=== PATIENT | female | born 1985 | race Caucasian/White ===

== ENCOUNTER → 2018-02-08 | Outpatient (CLI) | payer OTHER ==
[~2018-02-08] MED LIST: Vitafol-Ob+Dha1 EACH PO
[2018-02-08 17:52] LABS: Specimen Source URINE
[2018-02-09 08:53] LABS: Source Urine
== END ==
LOC: LAB 14:20
PROVIDERS: Registered Nurse Community Health
DX: Z34.01 Encounter for supervision of normal first pregnancy, first trimester (principal)
CPT/HCPCS: 87491; 87591

== ENCOUNTER 2018-08-16 21:13 | Inpatient (IN) | payer OTHER ==
[~2018-08-16] VITALS: Ht 170.2 cm; Wt 87.2 kg
[2018-08-16] MEDS ORDERED: Vitafol-Ob+Dha1 EACH PO (21:48)
[2018-08-16 21:52] LABS: BASOPHILS ABSOLUTE AUTO 0.02 K/mm3 (0.00-0.23); BASOPHILS PERCENT AUTO 0 % (0-2); EOSINOPHILS ABSOLUTE AUTO 0.08 K/mm3 (0.00-0.68); EOSINOPHILS PERCENT AUTO 1 % (0-6); Hematocrit 37.9 % (33.0-51.0); Hemoglobin 12.5 g/dL (11.5-16.0); IMMATURE GRAN ABSOLUTE AUTO 0.06 K/mm3 (0.00-0.10); IMMATURE GRAN PERCENT AUTO 1 % (0-1); LYMPHOCYTES ABSOLUTE AUTO 2.14 K/mm3 (0.84-5.20); LYMPHOCYTES PERCENT AUTO 19 % (21-46); MONOCYTES PERCENT AUTO 9 % (4-13); Mean Corpuscular HGB 30.5 pg (26.0-34.0); Mean Corpuscular Volume 92 fL (80-100); Mean Platelet Volume 10.7 fL (9.1-12.4); NEUTROPHILS ABSOLUTE AUTO 8.24 K/mm3 (1.96-9.15); NEUTROPHILS PERCENT AUTO 71 % (41-73); Platelet Count 223 K/mm3 (150-400); RDW Coefficient Variation 12.8 % (11.7-14.2); RDW Standard Deviation 43.7 fL (35.1-46.3); White Blood Cell Count 11.54 K/mm3 (4.00-11.30)
[2018-08-18 05:52] LABS: BASOPHILS ABSOLUTE AUTO 0.03 K/mm3 (0.00-0.23); BASOPHILS PERCENT AUTO 0 % (0-2); EOSINOPHILS PERCENT AUTO 1 % (0-6); Hematocrit 35.3 % (33.0-51.0); Hemoglobin 11.9 g/dL (11.5-16.0); IMMATURE GRAN ABSOLUTE AUTO 0.09 K/mm3 (0.00-0.10); IMMATURE GRAN PERCENT AUTO 1 % (0-1); LYMPHOCYTES ABSOLUTE AUTO 2.26 K/mm3 (0.84-5.20); LYMPHOCYTES PERCENT AUTO 16 % (21-46); MONOCYTES ABSOLUTE AUTO 1.02 K/mm3 (0.16-1.47); MONOCYTES PERCENT AUTO 7 % (4-13); Mean Corpuscular HGB 31.2 pg (26.0-34.0); Mean Corpuscular HGB Conc 33.7 g/dL (31.5-36.5); Mean Corpuscular Volume 92 fL (80-100); Mean Platelet Volume 10.8 fL (9.1-12.4); NEUTROPHILS ABSOLUTE AUTO 10.28 K/mm3 (1.96-9.15); NEUTROPHILS PERCENT AUTO 75 % (41-73); Platelet Count 197 K/mm3 (150-400); RDW Standard Deviation 43.8 fL (35.1-46.3); Red Blood Cell Count 3.82 M/mm3 (3.80-5.20); White Blood Cell Count 13.78 K/mm3 (4.00-11.30)
== END 2018-08-18 13:20 | disposition home or self-care (01) | DRG 807 ==
LOC: BC 21:13 → OBS 21:13 → BC 21:34
PROVIDERS: Registered Nurse Community Health
PROC: 10E0XZZ Delivery of Products of Conception, External Approach (ICD-10-PCS; principal; 2018-08-17)
PROC: 0HQ9XZZ Repair Perineum Skin, External Approach (ICD-10-PCS; 2018-08-17)
DX: O99.824 Streptococcus B carrier state complicating childbirth (principal); Z37.0 Single live birth; O70.0 First degree perineal laceration during delivery; Z3A.39 39 weeks gestation of pregnancy
CPT/HCPCS: 36415; 85025; 90686; 99213; J0290; J1885; J2210; J2405; J2590; J7120

== ENCOUNTER → 2021-02-21 | Outpatient (CLI) | payer OTHER ==
[2021-02-24 03:37] LABS: CHLAMYDIA TRACHOMATIS, NAA Negative (Negative)
== END ==
LOC: LAB SHORT 18:02 → LAB 18:02
PROVIDERS: Registered Nurse Community Health
DX: Z33.1 Pregnant state, incidental (principal)
CPT/HCPCS: 87491; 87591

== ENCOUNTER → 2021-07-02 | Outpatient (CLI) | payer OTHER ==
[2021-07-02 16:50] LABS: Hemoglobin 12.7 g/dL (11.5-16.0)
== END ==
LOC: LAB SHORT 15:26 → LAB 15:26
PROVIDERS: Registered Nurse Community Health
DX: Z34.91 Encounter for supervision of normal pregnancy, unspecified, first trimester (principal)
CPT/HCPCS: 82950; 85014; 85018

== ENCOUNTER → 2021-08-28 | Outpatient (CLI) | payer OTHER | LOC: LAB SHORT 12:50 → LAB 12:50 | DX: Z3A.36 36 weeks gestation of pregnancy (principal) | CPT/HCPCS: 87081; 87150 ==

== ENCOUNTER 2021-09-19 04:40 | Inpatient (IN) | payer OTHER ==
[~2021-09-19] VITALS: Ht 170.2 cm; Wt 92.0 kg
[2021-09-19 09:12] LABS: SARS-Cov-2 (COVID-19) PCR, MMC NEGATIVE (NEGATIVE)
[2021-09-19 09:14] LABS: BASOPHILS ABSOLUTE AUTO 0.02 K/mm3 (0.00-0.23); BASOPHILS PERCENT AUTO 0 % (0-2); EOSINOPHILS ABSOLUTE AUTO 0.11 K/mm3 (0.00-0.68); EOSINOPHILS PERCENT AUTO 1 % (0-6); Hematocrit 37.3 % (33.0-51.0); Hemoglobin 12.8 g/dL (11.5-16.0); IMMATURE GRAN ABSOLUTE AUTO 0.06 K/mm3 (0.00-0.10); IMMATURE GRAN PERCENT AUTO 1 % (0-1); LYMPHOCYTES ABSOLUTE AUTO 2.59 K/mm3 (0.84-5.20); LYMPHOCYTES PERCENT AUTO 26 % (21-46); MONOCYTES PERCENT AUTO 6 % (4-13); Mean Corpuscular HGB 29.7 pg (26.0-34.0); Mean Corpuscular HGB Conc 34.3 g/dL (31.5-36.5); Mean Corpuscular Volume 87 fL (80-100); Mean Platelet Volume 10.7 fL (9.1-12.4); NEUTROPHILS ABSOLUTE AUTO 6.75 K/mm3 (1.96-9.15); NEUTROPHILS PERCENT AUTO 67 % (41-73); Platelet Count 284 K/mm3 (150-400); RDW Coefficient Variation 12.6 % (11.7-14.2); RDW Standard Deviation 40.2 fL (35.1-46.3); Red Blood Cell Count 4.31 M/mm3 (3.80-5.20); White Blood Cell Count 10.13 K/mm3 (4.00-11.30)
--- NOTE | 2021-09-19 17:10 | NUR ---
PT S/L UP TO SHOWER, PT UNSURE IF SHE VOIDED, ICE TO PERINIUM PT TOLERATED WELL
[2021-09-20 07:06] LABS: BASOPHILS ABSOLUTE AUTO 0.03 K/mm3 (0.00-0.23); BASOPHILS PERCENT AUTO 0 % (0-2); EOSINOPHILS ABSOLUTE AUTO 0.07 K/mm3 (0.00-0.68); EOSINOPHILS PERCENT AUTO 1 % (0-6); Hematocrit 34.1 % (33.0-51.0); Hemoglobin 11.6 g/dL (11.5-16.0); IMMATURE GRAN ABSOLUTE AUTO 0.08 K/mm3 (0.00-0.10); IMMATURE GRAN PERCENT AUTO 1 % (0-1); LYMPHOCYTES ABSOLUTE AUTO 2.06 K/mm3 (0.84-5.20); LYMPHOCYTES PERCENT AUTO 15 % (21-46); MONOCYTES ABSOLUTE AUTO 0.86 K/mm3 (0.16-1.47); MONOCYTES PERCENT AUTO 6 % (4-13); Mean Corpuscular HGB 29.5 pg (26.0-34.0); Mean Corpuscular Volume 87 fL (80-100); Mean Platelet Volume 10.5 fL (9.1-12.4); NEUTROPHILS ABSOLUTE AUTO 10.74 K/mm3 (1.96-9.15); NEUTROPHILS PERCENT AUTO 78 % (41-73); Platelet Count 237 K/mm3 (150-400); RDW Coefficient Variation 12.9 % (11.7-14.2); RDW Standard Deviation 40.7 fL (35.1-46.3); Red Blood Cell Count 3.93 M/mm3 (3.80-5.20); White Blood Cell Count 13.84 K/mm3 (4.00-11.30)
--- NOTE | 2021-09-20 16:33 | NUR ---
BANDS MATCHED WITH NB, D/C INSTRUCTIONS REVIEWED AND SIGNED, PT RETURNING Thursday09/23/21 FOR FOLLOW UP APPOINTMENT.
== END 2021-09-20 16:45 | disposition home or self-care (01) | DRG 807 ==
LOC: BC 04:40
PROVIDERS: ADMIT Family Medicine
PROC: 10E0XZZ Delivery of Products of Conception, External Approach (ICD-10-PCS; principal; 2021-09-19)
PROC: 0KQM0ZZ Repair Perineum Muscle, Open Approach (ICD-10-PCS; 2021-09-19)
PROC: 3E02340 Introduction of Influenza Vaccine into Muscle, Percutaneous Approach (ICD-10-PCS; 2021-09-19)
DX: O99.824 Streptococcus B carrier state complicating childbirth (principal); Z37.0 Single live birth; O70.1 Second degree perineal laceration during delivery; Z23 Encounter for immunization; Z20.822 Contact with and (suspected) exposure to COVID-19; Z3A.39 39 weeks gestation of pregnancy; Z87.891 Personal history of nicotine dependence; Z67.10 Type A blood, Rh positive
CPT/HCPCS: 36415; 85025; 86850; 86900; 86901; 90686; A9270; J0290; J1885; J2210; J2590; J7120; U0004

== ENCOUNTER 2022-01-20 05:31 | Emergency (ER) | payer OTHER ==
[~2022-01-20] VITALS: Ht 170.2 cm; Wt 83.9 kg
[2022-01-20] MEDS ORDERED: FLUTICASONE PRO16 GM (05:44)
[2022-01-20 06:11] LABS: Source, Urine Clean Catch
[2022-01-20 06:14] LABS: Bilirubin, Urine Neg (Neg); Blood, Urine 4+ (Neg); Glucose Qualitative, Urine Neg (Neg); Ketones, Urine 1+ (Neg); Leukocyte Esterase, Urine 1+ (Neg); Nitrite, Urine Neg (Neg); Protein, Urine 1+ (Neg); Specific Gravity, Urine 1.015 (1.003-1.022); Urobilinogen, Urine NORM (Normal)
[2022-01-20 06:27] LABS: Appearance, Urine Hazy (Clear); Bacteria Few /hpf; Color, Urine Yellow (P-Yellow); Squamous Epithelial Cells Few /hpf (Few)
[2022-01-20] MEDS ORDERED: ONDA4ODT MM (06:45)
[2022-01-20] MEDS ORDERED: CEPH500 PO (06:48)
== END 2022-01-20 06:59 | disposition home or self-care (01) ==
LOC: ER 05:31
PROVIDERS: Student in an Organized Health Care Education/Training Program
DX: N39.0 Urinary tract infection, site not specified (principal); N20.1 Calculus of ureter
CPT/HCPCS: 81001; 87086; A9270; J1885

== ENCOUNTER → 2025-02-01 | Outpatient (CLI) | payer OTHER ==
[~2025-02-01] MED LIST changes: +CEPH500 PO; +FLUTICASONE PRO16 GM; +ONDA4ODT MM
[2025-02-01 14:31] LABS: Source, Urine Clean Catch
[2025-02-01 15:54] LABS: BASOPHILS ABSOLUTE AUTO 0.02 K/mm3 (0.00-0.23); BASOPHILS PERCENT AUTO 0 % (0-2); EOSINOPHILS ABSOLUTE AUTO 0.04 K/mm3 (0.00-0.68); EOSINOPHILS PERCENT AUTO 0 % (0-6); Hematocrit 38.1 % (33.0-51.0); Hemoglobin 12.8 g/dL (11.5-16.0); IMMATURE GRAN ABSOLUTE AUTO 0.03 K/mm3 (0.00-0.10); IMMATURE GRAN PERCENT AUTO 0 % (0-1); LYMPHOCYTES ABSOLUTE AUTO 1.99 K/mm3 (0.84-5.20); LYMPHOCYTES PERCENT AUTO 22 % (21-46); MONOCYTES ABSOLUTE AUTO 0.64 K/mm3 (0.16-1.47); MONOCYTES PERCENT AUTO 7 % (4-13); Mean Corpuscular HGB 28.9 pg (26.0-34.0); Mean Corpuscular HGB Conc 33.6 g/dL (31.5-36.5); Mean Corpuscular Volume 86 fL (80-100); Mean Platelet Volume 10.5 fL (9.1-12.4); NEUTROPHILS ABSOLUTE AUTO 6.28 K/mm3 (1.96-9.15); NEUTROPHILS PERCENT AUTO 70 % (41-73); Platelet Count 326 K/mm3 (150-400); RDW Coefficient Variation 12.8 % (11.7-14.2); RDW Standard Deviation 40.1 fL (35.1-46.3); Red Blood Cell Count 4.43 M/mm3 (3.80-5.20)
[2025-02-01 16:18] LABS: Appearance, Urine Hazy (Clear); Bilirubin, Urine Neg (Neg); Blood, Urine Neg (Neg); Color, Urine Yellow (P-Yellow); Glucose Qualitative, Urine Neg (Neg); Ketones, Urine Neg (Neg); Leukocyte Esterase, Urine Neg (Neg); Nitrite, Urine Neg (Neg); Protein, Urine Neg (Neg); Specific Gravity, Urine 1.015 (1.003-1.022); Urobilinogen, Urine NORM (Normal)
[2025-02-01 16:49] LABS: Amorphous Heavy (0-Heavy); Bacteria Few /hpf; Red Blood Cells, Urine 0-2 /hpf (0-2); Squamous Epithelial Cells Rare /hpf (Few); White Blood Cells, Urine 0-2 /hpf (0-5)
[2025-02-02 18:07] LABS: HEPATITIS C AB CIA INTERP Negative (Negative); HEPATITIS C ANTIBODY CIA INDEX 0.16 IV
[2025-02-02 18:47] LABS: HIV 1,2 COMBO ANTIGEN/ANTIBODY Negative (Negative)
[2025-02-03 17:53] LABS: HEPATITIS B SURFACE ANTIGEN Negative (Negative)
== END ==
LOC: LAB 12:00 → LAB SHORT 12:00
PROVIDERS: Registered Nurse Community Health
DX: Z34.91 Encounter for supervision of normal pregnancy, unspecified, first trimester (principal)
CPT/HCPCS: 81001; 82728; 83540; 83550; 84443; 86803; 87086; 87340; 87389

== ENCOUNTER → 2025-02-16 | Outpatient (CLI) | payer OTHER ==
[2025-02-16 18:19] LABS: Chlamydia Trachomatis Urine NOT DETECTED (NOT DETECT); Neisseria Gonorrhoea Urine NOT DETECTED (NOT DETECT)
== END ==
LOC: LAB SHORT 14:13 → LAB 14:13
PROVIDERS: Registered Nurse Community Health
DX: Z34.81 Encounter for supervision of other normal pregnancy, first trimester (principal)
CPT/HCPCS: 87491; 87591

== ENCOUNTER 2025-08-28 05:53 | Inpatient (IN) | payer OTHER ==
[2025-08-28] VITALS (12 sets, daily range): BP systolic 120–138; BP diastolic 60–85
[~2025-08-28] VITALS: Ht 170.2 cm; Wt 93.1 kg
[~2025-08-28 05:53] MED LIST changes: -FLUTICASONE PRO16 GM; +Flonase 0.05% N16 GM
[2025-08-28] MEDS ORDERED: OXYTOCIN/RINGER'S LACTATE 500 ML IV PRN (06:45)
[2025-08-28] MEDS ORDERED: Ondansetron HCl 2 MG / ML 2ML Vial IV PRN (06:45)
[2025-08-28] MEDS ORDERED: Tranexamic Acid 100 ML IV SCH (06:45)
[2025-08-28] MEDS ORDERED: Carboprost Tromethamine 250 MCG/ML 1ML Amp IM PRN (06:45)
[2025-08-28] MEDS ORDERED: Methylergonovine Maleate 0.2MG / ML 1ML Amp IM PRN ×2 (06:45→09:30)
[2025-08-28] MEDS ORDERED: Oxytocin 10 Unit / ML Vial IM PRN (06:45)
[2025-08-28] MEDS ORDERED: ZYRTEC10 M1 PO (06:52)
[2025-08-28 07:23] LABS: BASOPHILS ABSOLUTE AUTO 0.03 K/mm3 (0.00-0.23); BASOPHILS PERCENT AUTO 0 % (0-2); EOSINOPHILS ABSOLUTE AUTO 0.14 K/mm3 (0.00-0.68); EOSINOPHILS PERCENT AUTO 1 % (0-6); Hematocrit 36.4 % (33.0-51.0); Hemoglobin 12.4 g/dL (11.5-16.0); IMMATURE GRAN ABSOLUTE AUTO 0.13 K/mm3 (0.00-0.10); IMMATURE GRAN PERCENT AUTO 1 % (0-1); LYMPHOCYTES ABSOLUTE AUTO 2.09 K/mm3 (0.84-5.20); LYMPHOCYTES PERCENT AUTO 16 % (21-46); MONOCYTES ABSOLUTE AUTO 0.61 K/mm3 (0.16-1.47); MONOCYTES PERCENT AUTO 5 % (4-13); Mean Corpuscular HGB Conc 34.1 g/dL (31.5-36.5); Mean Corpuscular Volume 88 fL (80-100); NEUTROPHILS ABSOLUTE AUTO 10.20 K/mm3 (1.96-9.15); NEUTROPHILS PERCENT AUTO 77 % (41-73); NRBC ABSOLUTE 0.00 K/mm3 (0.00-0.02); NRBC Auto 0.0 /100 WBC (0.0-0.2); Platelet Count 235 K/mm3 (150-400); RDW Coefficient Variation 13.0 % (11.7-14.2); RDW Standard Deviation 41.6 fL (35.1-46.3)
[2025-08-28] MEDS ORDERED: Witch Hazel/Glycerin PADS TOP PRN (09:30)
[2025-08-28] MEDS ORDERED: OXYTOCIN/RINGER'S LACTATE 500 ML IV SCH (09:35)
[2025-08-28] MEDS ORDERED: Benzocaine Topical Anesthetic Spray 60GM TOP PRN (09:35)
[2025-08-28] MEDS ORDERED: FLU VACC TS2025-26(6MOS UP)/PF 45 MCG/0.5 ML SYRINGE IM SCH (09:35)
[2025-08-28] MEDS ORDERED: Ketorolac Tromethamine 30mg Vial IV PRN (09:35)
[2025-08-28] MEDS ORDERED: Acetaminophen/Codeine 300-30 mg PO PRN (09:40)
[2025-08-28] MEDS ORDERED: Phenyleph/Mineral Oil/Petrolat 1 APPLIC/57 GM Tube PR PRN (09:40)
[2025-08-28] MEDS ORDERED: Oxytocin 10 Unit / ML Vial IM ONE (09:40)
--- NOTE | 2025-08-28 15:48 | NUR ---
Upon receiving a referral for spiritual care, I visited the patient. She, her spouse, Reece, and baby Fahad are present. Patient and Reece talk about their strong beliefs, their family (2 dtrs ages 7 & 4), and their hopes for their new born son. I have the privilege and honor to pray a blessing over the baby and their family. The patient and Reece voice much appreciation for the visit, the prayer and the encouragement in their anthony. I will continue to remain available.
[2025-08-28] MEDS ORDERED: Fluticasone 0.05% Nasal Spray PRN (23:35)
[2025-08-29 03:57] VITALS: BP 120/73
[2025-08-29 06:40] LABS: BASOPHILS ABSOLUTE AUTO 0.05 K/mm3 (0.00-0.23); BASOPHILS PERCENT AUTO 0 % (0-2); EOSINOPHILS ABSOLUTE AUTO 0.22 K/mm3 (0.00-0.68); EOSINOPHILS PERCENT AUTO 1 % (0-6); Hematocrit 35.9 % (33.0-51.0); Hemoglobin 12.1 g/dL (11.5-16.0); IMMATURE GRAN ABSOLUTE AUTO 0.11 K/mm3 (0.00-0.10); IMMATURE GRAN PERCENT AUTO 1 % (0-1); LYMPHOCYTES ABSOLUTE AUTO 2.62 K/mm3 (0.84-5.20); LYMPHOCYTES PERCENT AUTO 17 % (21-46); MONOCYTES ABSOLUTE AUTO 1.03 K/mm3 (0.16-1.47); MONOCYTES PERCENT AUTO 7 % (4-13); Mean Corpuscular HGB Conc 33.7 g/dL (31.5-36.5); Mean Corpuscular Volume 86 fL (80-100); NEUTROPHILS ABSOLUTE AUTO 11.44 K/mm3 (1.96-9.15); NEUTROPHILS PERCENT AUTO 74 % (41-73); NRBC ABSOLUTE 0.00 K/mm3 (0.00-0.02); NRBC Auto 0.0 /100 WBC (0.0-0.2); Platelet Count 233 K/mm3 (150-400); RDW Coefficient Variation 13.1 % (11.7-14.2); RDW Standard Deviation 40.4 fL (35.1-46.3)
[2025-08-29] MEDS ORDERED: Prenatal Vit/FE Fumarate/FA 1 Tab PO SCH (09:00)
[2025-08-29 09:05] VITALS: BP 130/62
--- NOTE | 2025-08-29 10:48 | NUR ---
DISCHARGE READY TO DC HOME STABLE. NO COMPLAINTS. VSS. AFEBRILE. VERBALIZES UNDERSTANDING OF DC INSTRUCTIONS AND FOLLOW UP APPOINTMENTS. NO QUESTIONS OR CONCERNS. CARING FOR SELF AND INDEPENDANTLY.
== END 2025-08-29 11:00 | disposition home or self-care (01) | DRG 807 ==
LOC: OBS 05:53 → BC 05:54 → OBS 06:33 → BC 06:39
PROVIDERS: ADMIT Registered Nurse Community Health
PROC: 10E0XZZ Delivery of Products of Conception, External Approach (ICD-10-PCS; principal; 2025-08-29)
DX: O99.62 Diseases of the digestive system complicating childbirth (principal); Z37.0 Single live birth; K21.9 Gastro-esophageal reflux disease without esophagitis; Z79.51 Long term (current) use of inhaled steroids; Z79.899 Other long term (current) drug therapy; Z3A.37 37 weeks gestation of pregnancy
CPT/HCPCS: 36415; 59025; 81003; 85025; 86850; 86900; 86901; 99214; A9270; J1885; J2590

== ENCOUNTER 2025-10-26 10:43 | Day surgery (SDC) | payer OTHER ==
[2025-10-26] VITALS (9 sets, daily range): BP systolic 107–128; BP diastolic 63–84
[~2025-10-26] VITALS: Ht 169 cm; Wt 86.0 kg
[~2025-10-26 10:43] MED LIST changes: +CeFAZolin Sodium 2,000 MG in NS 100 ML IV SCH; +ZYRTEC10 M1 PO
[2025-10-26] MEDS ORDERED: Midazolam HCl 1MG / ML 2ML Vial ONE (11:29)
[2025-10-26] MEDS ORDERED: FentaNYL Citrate 50 MCG/ML 2 ML Injection ONE (11:29)
--- NOTE | 2025-10-26 11:48 | NUR ---
History, Chart, Medications and Allergies reviewed before start of procedure. Patient up to Ambulate independently. Gait steady. Pre-Op teaching done. Pt verbalizes understanding. Patient confirms NPO status and agrees with scheduled surgery. Patient reports completing Chlorhexadine shower X2 prior to admission to hospital. Surgical site prepped with 2% Chlorhexidine cloth wipe. Patient States Post-Procedure ride home has been arranged.
[2025-10-26] MEDS ORDERED: Bupivacaine 0.5% W/EPI 1:200000 SDV 30 ML Vial ONE (12:10)
[2025-10-26] MEDS ORDERED: HYDROmorphone HCl/Pf 1MG SYR IV PRN ×2 (13:30→13:35)
[2025-10-26] MEDS ORDERED: Ondansetron HCl 2 MG / ML 2ML Vial IV PRN (13:30)
[2025-10-26] MEDS ORDERED: FentaNYL Citrate 50 MCG/ML 2 ML Injection IV PRN ×2 (13:30)
[2025-10-26] MEDS ORDERED: Rocuronium Bromide 10 MG/ML 5ML Injection IV ONE (13:31)
[2025-10-26] MEDS ORDERED: HYDROmorphone HCl/Pf 1MG SYR ONE (14:14)
[2025-10-26] MEDS ORDERED: Sugammadex Sodium 200 MG/2ML SDV (100 MG/ML) ONE (14:18)
[2025-10-26] MEDS ORDERED: OxyCODONE 5 mg/Acetamin 325 mg TABLET PO PRN (14:55)
--- NOTE | 2025-10-26 16:21 | NUR ---
REPORT TO Rich REDDY.
--- NOTE | 2025-10-26 16:39 | NUR ---
1630: Report received from Aguilar REDDY. VSS. Pt on RA. Pt has no complaints and verbalizes readiness to go home. Discharge instructions reviewed with patient and her spouse. Patient verbalizes understanding. Copy given to patient to take home. Obdulia pad in place with minimal drainage noted. Patient States Post-Procedure ride home has been arranged. Discharged via wheelchair to private car for ride home. Pt belongings returned to pt.
== END 2025-10-26 16:40 | disposition home or self-care (01) ==
LOC: ORSCMMR 10:43 → ORD 13:00 → ORSCMMR 13:00
PROVIDERS: Obstetrics & Gynecology
PROC: 8E0W4CZ Robotic Assisted Procedure of Trunk Region, Percutaneous Endoscopic Approach (ICD-10-PCS; principal; 2025-10-26 13:00)
PROC: 0UT74ZZ Resection of Bilateral Fallopian Tubes, Percutaneous Endoscopic Approach (ICD-10-PCS; principal; 2025-10-26 13:00)
PROC: 0U5F4ZZ Destruction of Cul-de-sac, Percutaneous Endoscopic Approach (ICD-10-PCS; principal; 2025-10-26 13:00)
DX: Z30.2 Encounter for sterilization (principal); N83.201 Unspecified ovarian cyst, right side; N80.329 Endometriosis of the posterior cul-de-sac, unspecified depth; F41.9 Anxiety disorder, unspecified; F32.A Depression, unspecified
CPT/HCPCS: 88302; A9270; J0690; J1171; J2250; J2405; J2704; J3010; J7120